=== PATIENT | male | born 1990 | race Caucasian/White ===

== ENCOUNTER 2016-09-20 14:45 | Emergency (ER) | payer OTHER ==
[~2016-09-20] VITALS: Ht 185.4 cm; Wt 211.1 kg
[~2016-09-20 14:45] MED LIST: CORLANOR7.5 MG PO; DAFLONEX-XL TA1 EACH PO; XARELTO20 MG PO
[2016-09-20 16:14] LABS: EOSINOPHIL (%) 1.5 % (0-5); EOSINOPHIL COUNT 0.2 K/uL (0-0.3); HEMATOCRIT 46.3 % (38.0-50.0); IMMATURE GRANULOCYTE (%) 0.9 % (0.0-0.7); IMMATURE GRANULOCYTE COUNT 0.1 K/uL; INSTRUMENT ABS NEUTROPHIL CT 6.1 K/uL; LYMPHOCYTE COUNT 2.6 K/uL (1.0-2.8); MCH 26.6 PG (29.0-34.0); MCHC 31.7 G/DL (30.0-36.0); MCV 83.9 FL (86-99); MEAN PLAT.VOLUME 10.4 uM^3 (9.0-12.4); MONOCYTE (%) 9.1 % (3-12); MONOCYTE COUNT 0.9 K/uL (0-0.8); NEUTROPHIL COUNT 6.1 K/uL (1.8-6.4); PLATELET COUNT 253 K/uL (156-360); RBC DIS.WIDTH-CV 13.4 % (11.8-14.6); RBC DIS.WIDTH-SD 40.9 % (39-53); RED BLOOD COUNT 5.52 M/uL (4.00-5.50); WHITE BLOOD COUNT 9.8 K/uL (4.1-10.2)
[2016-09-20 16:26] LABS: CHLORIDE 108 mEq/L (99-109); POTASSIUM 4.6 mEq/L (3.7-5.4); SODIUM 142 mEq/L (136-147)
[2016-09-20 16:27] LABS: D-DIMER ELISA 0.29 mg/L FEU (< 0.57)
[2016-09-20 16:28] LABS: GLUCOSE 114 mg/dL (70-99)
[2016-09-20 16:29] LABS: ANION GAP 8 MEQ/L (2-14)
[2016-09-20 16:30] LABS: TOTAL BILIRUBIN 0.3 mg/dL (0.0-1.0)
[2016-09-20 16:32] LABS: ALKALINE PHOSPHATASE 68 IU/L (3-129); GFR ESTIMATE (CALCULATED) > 59 mL/min/
[2016-09-20 16:33] LABS: UREA NITROGEN (BUN) 9 mg/dL (9-23)
[2016-09-20 20:56] VITALS: BP 138/87
== END 2016-09-20 21:00 | disposition home or self-care (01) ==
LOC: EME 14:45
PROVIDERS: Nurse Practitioner Family
DX: M54.6 Pain in thoracic spine (principal); E66.9 Obesity, unspecified; Z68.44 Body mass index [BMI] 60.0-69.9, adult; D68.2 Hereditary deficiency of other clotting factors; Z86.711 Personal history of pulmonary embolism; Z86.718 Personal history of other venous thrombosis and embolism; Z79.01 Long term (current) use of anticoagulants
CPT/HCPCS: 71275; 80053; 85025; 85379; 93005; 99281; 99285; J7030

== ENCOUNTER 2017-02-04 17:50 | Emergency (ER) | payer OTHER ==
[~2017-02-04] VITALS: Ht 188 cm; Wt 213.7 kg
[2017-02-04 18:40] LABS: MCH 25.5 PG (29.0-34.0); MCHC 31.5 G/DL (30.0-36.0); MCV 81.2 FL (86-99); MEAN PLAT.VOLUME 10.6 uM^3 (9.0-12.4); PLATELET COUNT 263 K/uL (156-360); RBC DIS.WIDTH-CV 13.8 % (11.8-14.6); RBC DIS.WIDTH-SD 40.5 % (39-53); RED BLOOD COUNT 5.91 M/uL (4.00-5.50); WHITE BLOOD COUNT 13.1 K/uL (4.1-10.2)
[2017-02-04 19:03] LABS: CHLORIDE 103 mEq/L (99-109); POTASSIUM 3.8 mEq/L (3.7-5.4); SODIUM 139 mEq/L (136-147)
[2017-02-04 19:05] LABS: GLUCOSE 141 mg/dL (70-99)
[2017-02-04 19:06] LABS: ANION GAP 11 MEQ/L (2-14)
[2017-02-04 19:09] LABS: GFR ESTIMATE (CALCULATED) > 59 mL/min/
[2017-02-04 19:10] LABS: UREA NITROGEN (BUN) 9 mg/dL (9-23)
[2017-02-04 19:14] LABS: TROP-I INTERPRETATION NEGATIVE; TROPONIN-I < 0.01 ng/mL (0.0-0.30)
[2017-02-04 21:50] VITALS: BP 158/89
== END 2017-02-04 21:50 | disposition home or self-care (01) ==
LOC: EME 17:50
DX: S29.011A Strain of muscle and tendon of front wall of thorax, initial encounter (principal); R07.9 Chest pain, unspecified; D68.2 Hereditary deficiency of other clotting factors; Z86.718 Personal history of other venous thrombosis and embolism; Z86.711 Personal history of pulmonary embolism; Z79.01 Long term (current) use of anticoagulants
CPT/HCPCS: 71020; 71275; 80048; 84484; 85027; 93005; 99281; 99284; J7030